=== PATIENT | male | born 1985 | race Two or more races ===

== ENCOUNTER 2023-10-20 21:14 | Emergency (ER) | payer OTHER, SELFPAY ==
[2023-10-20 21:16] VITALS: BP 127/94
[2023-10-20 22:02] VITALS: BMI 35.9
--- NOTE | 2023-10-20 22:28 | ED.GENMED ---
History of Present Illness
<Taj Louis MD, Resident - Last Filed: 10/20/23 23:47>
General
Chief Complaint: Blood Pressure Problem
Source: patient
Time Seen by Provider: 10/20/23 21:25
History of Present Illness
History of Present Illness:
37-year-old male, Mr. Aman Trimble with no significant past medical history, presented to the ER to get his high blood pressure evaluated. Patient reports that he had an argument with his a couple of days ago and since then he feels that
his blood pressure was high. He got his blood pressure checked at [facility] today, was 133/99. And also reports having heaviness on the back of his head, mentions that he has dizziness and palpitations constantly from the past 2 days. No history of
vision changes, nausea/vomiting, chest pain, SOB, calf pain, abdominal pain, bladder/bowel disturbances. No numbness, weakness, tingling. 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
Past History
<Taj Louis MD, Resident - Last Filed: 10/20/23 23:47>
Past History
ED Past Medical History: None
Social History
Tobacco: Non-smoker
Alcohol: None
Drug: None
Personal:
Living: with family
Employment: Employed
Phy Exam
<Taj Louis MD, Resident - Last Filed: 10/20/23 23:47>
Physical Exam
Physical Exam:
GEN: Well appearing, NAD, WDWN
Eyes: PERRLA, EOMs intact, no scleral icterus
HENT: NCAT, oral mucosa moist, no JVD, no cervical adenopathy.
Lungs: CTAB, no wheezes, rales, rhonchi, normal chest wall excursion
Cardiac: RRR, no M/R/G, no peripheral edema. Radial pulses 2+ bilat
Abdomen: S, NT, ND, NABS, no masses or hepatosplenomegaly
Neuro: AO x 3, no focal deficits to BUE/BLE, normal sensation throughout
Skin: No rashes, petechiae. Normal color, no pallor or jaundice.
Psych: Calm, cooperative, proper hygiene
Course
<[facility] MD, Resident - Last Filed: 10/20/23 23:47>
Orders/Labs/Results
Orders:
Orders
10/20/23 21:50
EKG [Electrocardiogram (*1)] Urgent
Reason for Study: Hypertension, Benign
10/20/23 21:51
EKG- Treatment ONCE
10/20/23 22:32
Complete Blood Count/With Diff Urgent
Comprehensive Metabolic Panel Urgent
10/20/23 22:34
Acetaminophen [Tylenol] 650 mg .ROUTE .STK-MED ONE
10/20/23 22:35
Acetaminophen [Tylenol] 650 mg PO NOW STA
10/20/23 23:44
Ketorolac [Toradol] 30 mg IM NOW STA
Abnormal Lab Results
10/20/23
22:32
Carbon Dioxide 31 H mmol/L
(22-30)
Glucose 134 H mg/dl
(70-99)
ALT 78 H U/L
(0-50)
10/20/23 22:32
10/20/23 22:32
Vital Signs
Initial and Last Documented VS:
Initial Vital Signs
Temp Pulse Resp BP Pulse Ox
36.9 C 103 18 127/94 99
10/20/23 21:16 10/20/23 21:16 10/20/23 21:16 10/20/23 21:16 10/20/23 21:16
Last Documented Vital Signs
Temp Pulse Resp BP Pulse Ox
36.9 C 80 18 144/95 99
10/20/23 21:16 10/20/23 23:56 10/20/23 23:56 10/20/23 23:56 10/20/23 22:39
<Amandeep Frazier MD - Last Filed: 10/21/23 01:39>
Orders/Labs/Results
Orders:
Orders
10/20/23 21:50
EKG [Electrocardiogram (*1)] Urgent
Reason for Study: Hypertension, Benign
10/20/23 21:51
EKG- Treatment ONCE
10/20/23 22:32
Complete Blood Count/With Diff Urgent
Comprehensive Metabolic Panel Urgent
10/20/23 22:34
Acetaminophen [Tylenol] 650 mg .ROUTE .STK-MED ONE
10/20/23 22:35
Acetaminophen [Tylenol] 650 mg PO NOW STA
10/20/23 23:44
Ketorolac [Toradol] 30 mg IM NOW STA
Abnormal Lab Results
10/20/23
22:32
Carbon Dioxide 31 H mmol/L
(22-30)
Glucose 134 H mg/dl
(70-99)
ALT 78 H U/L
(0-50)
10/20/23 22:32
10/20/23 22:32
Vital Signs
Initial and Last Documented VS:
Initial Vital Signs
Temp Pulse Resp BP Pulse Ox
36.9 C 103 18 127/94 99
10/20/23 21:16 10/20/23 21:16 10/20/23 21:16 10/20/23 21:16 10/20/23 21:16
Last Documented Vital Signs
Temp Pulse Resp BP Pulse Ox
36.9 C 80 18 144/95 99
10/20/23 21:16 10/20/23 23:56 10/20/23 23:56 10/20/23 23:56 10/20/23 22:39
<Taj Louis MD, Resident - Last Filed: 10/20/23 23:47>
MDM/Problems Addressed
Differential Diagnosis Includes:
Anxiety, ACS, unlikely to be PE.
MDM/Problems Addressed:
Patient's blood pressure was 127/94 at presentation.
EKG-sinus rhythm.
Ordered CBC, CMP.
Hyperglycemia, blood glucose at 134. No prior diagnosis of diabetes.
Elevated ALT�78.
Rest of the labs unremarkable.
Patient reports that he has new onset of headache now.
Ordered Tylenol 650 mg.
Patient is hemodynamically stable.
Ordered Toradol IM for his headache.
Patient is stable for discharge.
Advised to follow-up with primary care within 1 week.
<Taj Louis MD, Resident - Last Filed: 10/20/23 23:47>
*Critical Care Note
Total Time (30-74mins, 75-104mins- exclusive of procedures): Not Applicable
<Amandeep Frazier MD - Last Filed: 10/21/23 01:39>
*EKG
Interpreted by ED Provider?: Yes
Heart Rate: 88
Rate: normal
Rhythm: sinus
Willow: left axis deviation
Interval: normal interval
QRS Pattern: left vent hypertrophy
Ischemia: other (Nonspecific T wave abnormality)
ED Attending Note
<Taj Louis MD, Resident - Last Filed: 10/20/23 23:47>
-
Portions of this chart may have been created with voice recognition software.� Occasional wrong word or��sound alike� substitutions may have occurred due to the inherent limitations of voice recognition software.
<Amandeep Frazier MD - Last Filed: 10/21/23 01:39>
ED Attending Note
Patient seen and examined by attending physician: Yes
I performed a history and physical exam of patient and discussed management with resident, I reviewed resident's note and agree with documented findings and plan of care.: Yes
ED Attending Note:
I have seen and evaluated the patient with a [id number] encounter. I have spoken to the resident and involved in the medical history, the physical exam, medical decision making.
Evaluation and management service: agree unless noted differently below.
Results interpretation: agree unless noted differently below.
Focused HPI: 37-year-old male presents for evaluation of hypertension. Patient reports that he was arguing with his a couple days ago and started to have occipital headache. He says he had similar episode in the same circumstance, checked his
blood pressure it was high (he says it was 133/99). Came to the emergency room for evaluation. He reports occasional dizziness denies any other specific symptoms including chest pain, shortness of breath or any other complaints. He denies history
of hypertension and is not on any blood pressure medications.
Physical exam: Awake alert not in distress. Cranial nerves intact 2 through 12, speech fluid no dysarthria or aphasia, motor and sensory function intact in all extremities. He has no cardiac rubs or murmurs. Lungs are clear to auscultation
bilaterally. No edema in the extremities and good pulses in all extremities.
Medical Decision Making: Patient presents for evaluation of mild hypertension; initially checked it due to headache in the setting of fighting with his . He had screening labs sent off which were unremarkable, EKG which shows no acute ischemic
changes. Stable for discharge, blood pressure has been normal here no indication to initiate antihypertensive treatment at this point suspect likely stress related. Advised to follow-up with PCP.
Discharge Plan
Departure
Patient Disposition: Home (Routine Discharge)
Date of Disposition: 10/20/23
Time of Disposition: 23:24
Patient with high blood pressure during this ER visit?: Yes
Discharge Problem:
hypertension, Headache
Instructions: Headache, Adult ED, BLOOD PRESSURE
Prescriptions:
No Action
No Current Medications
0
Referrals:
Dawn Rutledge MD [Family Provider] -
Activity Restrictions/Additional Instructions:
Advised to follow-up with primary care physician within a week.
Return to the ER with any worsening symptoms, red flag symptoms.
Interventions
Interventions:
*Risk Screen - Suicide Last Done: 10/20/23 21:16
*General Assessment Last Done: 10/20/23 21:16
*Neglect/Abuse Screening Last Done: 10/20/23 21:16
ED- Fall Risk Assessment Last Done: 10/20/23 21:28
*ED COVID-19 Vaccine History Last Done: 10/21/23 00:13
*Nursing Disposition Last Done: 10/21/23 00:13
ED- Cardiac Assessment Last Done: 10/20/23 21:28
ED- Neurological Assessment Last Done: 10/20/23 21:28
ED- Pulmonary Assessment Last Done: 10/20/23 21:28
Discharge Date and Time
Discharge Date/Time: 10/21/23 00:05
Print Language: WELSH
[2023-10-20] MEDS: TYLENOL 650 MG PO (22:36)
[2023-10-20 22:39] VITALS: BP 140/86
[2023-10-20 22:41] LABS: % Basophils 0.8 % (0-2); % Eosinophils 2.3 % (0-6); % Immature Granulocytes 0.2 % (0-0.5); % Lymphocytes 36.7 % (20.5-51.1); % Monocytes 6.3 % (1.7-9.3); % Neutrophils 53.7 % (42.2-75.2); Absolute Basophils 0.1 10^3/uL (0-0.2); Absolute Eosinophils 0.1 10^3/uL (0-0.7); Absolute Lymphocytes 2.3 10^3/uL (1.2-3.4); Absolute Monocytes 0.4 10^3/uL (0.1-0.6); Absolute Neutrophils 3.4 10^3/uL (1.4-6.5); Hematocrit 45.4 % (39.0-52.0); Hemoglobin 15.8 g/dL (13.0-18.0); Mean Corp Hgb Conc. 34.8 g/dL (33.0-37.0); Mean Corpuscular Hgb 28.9 pg (27.0-31.0); Mean Corpuscular Volume 83.2 fL (80.0-94.0); Mean Platelet Volume 9.4 fL (7.4-10.4); Nucleated Red Blood Cells % 0 % (-); Platelet Count 226 10^3/uL (130-400); Red Blood Cell Count 5.46 10^6/uL (4.70-6.10); Red Cell Dist. Width 12.8 % (11.5-14.5); White Blood Cell Count 6.2 10^3/uL (4.8-10.8)
[2023-10-20 22:52] LABS: ALT (SGPT) 78 U/L (0-50); AST (SGOT) 38 U/L (17-59); Albumin 4.6 g/dl (3.5-5.0); Alkaline Phosphatase 68 U/L (38-126); Blood Urea Nitrogen 18 mg/dl (9-20); Calcium 9.9 mg/dl (8.4-10.2); Carbon Dioxide 31 mmol/L (22-30); Chloride 104 mmol/L (98-107); Estimated Creatinine Clearance > 125 ml/min; Glucose 134 mg/dl (70-99); Potassium 4.4 mmol/L (3.5-5.1); Sodium 142 mmol/L (135-145); Total Bilirubin 0.5 mg/dl (0.2-1.3); Total Protein 7.3 g/dl (6.3-8.2); eGFR > 60.00
[2023-10-20] MEDS: TORADOL 30 MG IM (23:53)
[2023-10-20 23:56] VITALS: BP 144/95
== END 2023-10-21 00:05 | disposition home or self-care (01) ==
LOC: EMR 21:14
PROVIDERS: EMERGENCY PHYSICIAN Emergency Medicine; FAMILY PHYSICIAN Family Medicine
DX: I10 Essential (primary) hypertension (principal); R51.9 Headache, unspecified; R42 Dizziness and giddiness; R00.2 Palpitations; R73.9 Hyperglycemia, unspecified
CPT/HCPCS: 99284; 96372; 80053; 85025; 93005